=== PATIENT | female | born 1945 | race Hispanic/Latino ===

== ENCOUNTER → 2024-05-05 | Outpatient (CLI) | payer OTHER | END | disposition home or self-care (01) | LOC: RAH 10:03 | PROVIDERS: ATTEND Internal Medicine | DX: N28.1 Cyst of kidney, acquired (principal); K76.0 Fatty (change of) liver, not elsewhere classified; R79.89 Other specified abnormal findings of blood chemistry | CPT/HCPCS: 76700 ==

== ENCOUNTER 2024-12-24 11:51 | Emergency (ER) | payer OTHER ==
[~2024-12-24] VITALS: Ht 154.9 cm; Wt 90.3 kg
[2024-12-24 12:01] VITALS: O2SAT 96
--- NOTE | 2024-12-24 12:46 | EKG ---
[facility] Test Date: 2024-12-24 Test Time: 12:43:29 Pat Name: CHNAEL GONZALEZ Department: [facility] Room: Gender: F Lusterer: [id number] : 1945 Requested By: ABENA FERNANDEZ Order Number: [id number] Reading MD: Michel Britton Measurements Intervals Serena Rate: 65 P: 6 [place]: 174 QRS: -27 QRSD: 87 T: 25 QT: 434 QTc: 451 Interpretive Statements Sinus rhythm Poor R wave progression No previous ECG available for comparison Electronically Signed On 12-25-2024 16:18:05 CDT by Michel Britton Please click the below link to view image of tracing.
[2024-12-24 12:47] LABS: BASOPHILS # (AUTO) 0.03 K/uL (0.00-0.20); BASOPHILS % (AUTO) 0.3 % (0.0-5.0); EOSINOPHILS # (AUTO) 0.09 K/uL (0.00-0.70); EOSINOPHILS % (AUTO) 0.9 % (0.0-8.0); HEMATOCRIT 41.8 % (36-48); IMMATURE GRANULOCYTE ABSOLUTE 0.03 K/uL (0-1); LYMPHOCYTES # (AUTO) 2.8 K/uL (1.0-4.8); MEAN CORPUSCULAR HEMOGLOBIN 29.9 pg (27.0-33.0); MEAN CORPUSCULAR HGB CONC 32.8 g/dL (32.0-36.0); MEAN CORPUSCULAR VOLUME 91.3 fL (79-99); MONOCYTES # (AUTO) 0.7 K/uL (0.1-1.0); MONOCYTES % (AUTO) 7.2 % (3.0-13.0); NEUTROPHILS # (AUTO) 6.6 K/uL (1.8-7.7); NEUTROPHILS % (AUTO) 64.3 % (40.0-77.0); PLATELET COUNT (AUTO) 447 K/uL (130-400); RED BLOOD CELL COUNT(AUTO) 4.58 MIL/uL (4.00-5.50); RED CELL DISTRIBUTION WIDTH 13.3 % (11.0-15.5); WHITE BLOOD COUNT (AUTO) 10.2 K/uL (4.8-10.8)
[2024-12-24 12:58] LABS: CREATININE 0.5 mg/dL (0.5-1.0); POTASSIUM 3.9 mmol/L (3.5-5.1)
[2024-12-24 13:01] LABS: ALBUMIN 3.7 g/dL (3.5-5.0); BILIRUBIN,TOTAL 0.3 mg/dL (0.2-1.0); TOTAL PROTEIN, SERUM 8.5 g/dL (6.0-8.3)
[2024-12-24] MEDS ORDERED: IOHEXOL 350 MG/ML 100ML INFUS..BTL IV ONE (13:33)
--- NOTE | 2024-12-24 13:45 | ERN ---
General Chief Complaint: Mechanical Fall Stated Complaint: MECHANICAL FALL Time Seen by MD: 12:05 Source: patient History of Present Illness Initial Comments Patient is a 79-year-old female coming in complaining of abdominal discomfort. Patient states that earlier today she slipped and fell down hitting herself in the abdomen. She is complaining of abdominal pain. Along with the abdominal pain she states that she is a has been having some upper back pain. Allergies: Coded Allergies: No Known Drug Allergies (Unverified Allergy, Unknown, 12/24/24) Past Medical History Past Medical History: Diabetes-Type II, High Cholesterol, Hypertension Past Surgical History: Hysterectomy, Other Surgical History Other: bilateral knee sx, cataracts ROS Dictation CONSTITUTIONAL: No chills, no fever, no weakness, no diaphoresis, no malaise. HEAD/FACE: No signs of trauma. EENT: No eye pain, no blurred vision, no tearing, no double vision, no ear pain, no ear discharge, no nose pain, no nasal congestion, no throat pain, no throat swelling, no mouth pain. RESPIRATORY: No cough, no orthopnea, no SOB, no stridor, no wheezing. CARDIOVASCULAR: No chest pain, no edema, no palpitations, no syncope. GASTROINTESTINAL/ABDOMINAL: abdominal pain, no constipation, no diarrhea, no nausea, no vomiting. GENITOURINARY: No abnormal discharge, no dysuria, no frequent urination, no hematuria. No complaints of pain in the genitals. MUSCULOSKELETAL: No back pain, no gout, no joint pain, no joint swelling, no muscle pain, no muscle stiffness, no neck pain. INTEGUMENTARY: No change in color, no change in hair/nails, no dryness, no lesion, no lumps, no rash. NEUROLOGICAL/PSYCH: No anxiety, not depressed, no emotional problem, no headache, no numbness, no pre-existing deficit, no history of seizures, no tremors, no weakness. HEMATOLOGIC/LYMPHATIC: Not anemic, no history of blood clots, no apparent bleeding, no bruising, glands not swollen. All Systems Negative, Except as Noted. Physical Exam Physical Exam Dictation VITAL SIGNS: Reviewed. GENERAL APPEARANCE: Alert, oriented x3, no acute distress, obese. HEAD AND FACE: Non-traumatic. EYES: PERRL, pink conjunctivas, eyelid no trauma, anterior chamber clear. EARS: Pinnas intact and no signs of trauma or erythema. Ear canals clear and no discharge. TMs no erythema. NOSE: No discharge, no bleeding. OROPHARYNX: Mouth normal, teeth no caries, tongue pink. Pharynx clear, no erythema. Tonsils no exudates, no abscesses noted. Mucous membrane moist. NECK: Supple, non-tender, no thyromegaly, no masses, no JVD, no bruits. BREAST: Deferred. CHEST: No tenderness, no crepitus, no paradoxical movement, no retractions. LUNGS: Clear, well-ventilated, symmetric, no rales, no wheezing, no rhonchi, no stridor, good breath sounds bilaterally. HEART: Regular rate, regular rhythm, no murmur, no gallops. VASCULAR: No peripheral edema. ABDOMEN: Soft, positive bowel sounds, nondistended, no guarding, tender, no rebound, no masses no hepatomegaly, no splenomegaly, no Olivier's sign, no hernias. RECTAL: Deferred. GENITAL: Deferred. NEUROLOGICAL: Normal speech, gross motor function intact, gross sensory function intact. MUSCULOSKELETAL: Neck nontender, full range of motion, back nontender, full range of motion. EXTREMITIES: Nontender, full range of motion. SKIN: Color pink, dry, no turgor, no rash, no lacerations, no abrasions, no contusions. LYMPHATICS: Deferred. Results Laboratory and Microbiology Lab and Micro Result Laboratory Tests Test 12/24/24 12:41 White Blood Count 10.2 K/uL (4.8-10.8) Red Blood Count 4.58 MIL/uL (4.00-5.50) Hemoglobin 13.7 g/dL (12.0-16.0) Hematocrit 41.8 % (36-48) Mean Corpuscular Volume 91.3 fL (79-99) Mean Corpuscular Hemoglobin 29.9 pg (27.0-33.0) Mean Corpuscular Hemoglobin Concent 32.8 g/dL (32.0-36.0) Red Cell Distribution Width 13.3 % (11.0-15.5) Platelet Count 447 K/uL (130-400) H Mean Platelet Volume 10.1 fL (7.5-10.5) Immature Granulocyte % (Auto) 0.3 % (0-1) Neutrophils (%) (Auto) 64.3 % (40.0-77.0) Lymphocytes (%) (Auto) 27.0 % (21.0-51.0) Monocytes (%) (Auto) 7.2 % (3.0-13.0) Eosinophils (%) (Auto) 0.9 % (0.0-8.0) Basophils (%) (Auto) 0.3 % (0.0-5.0) Neutrophils # (Auto) 6.6 K/uL (1.8-7.7) Lymphocytes # (Auto) 2.8 K/uL (1.0-4.8) Monocytes # (Auto) 0.7 K/uL (0.1-1.0) Eosinophils # (Auto) 0.09 K/uL (0.00-0.70) Basophils # (Auto) 0.03 K/uL (0.00-0.20) Absolute Immature Granulocyte (auto 0.03 K/uL (0-1) Nucleated Red Blood Cells 0.0 % (0.0-0.19) Sodium Level 138 mmol/L (136-145) Potassium Level 3.9 mmol/L (3.5-5.1) Chloride Level 101 mmol/L (101-111) Carbon Dioxide Level 33 mmol/L (21-32) H Blood Urea Nitrogen 11 mg/dL (7-18) Creatinine 0.5 mg/dL (0.5-1.0) Glomerular Filtration Rate Calc 97 mL/min (>90) Random Glucose 126 mg/dL (70-105) H Total Calcium 9.8 mg/dL (8.5-10.1) Total Bilirubin 0.3 mg/dL (0.2-1.0) Aspartate Amino Transf (AST/SGOT) 55 U/L (10-37) H Alanine Aminotransferase (ALT/SGPT) 63 U/L (12-78) Alkaline Phosphatase 77 U/L (50-136) Troponin I High Sensitivity 7 ng/L (4-50) Total Protein 8.5 g/dL (6.0-8.3) H Albumin 3.7 g/dL (3.5-5.0) Lipase 40 U/L (16-77) Labs Reviewed?: Yes EKG/XRAY/US/CT/MRI EKG Comment 12/24/2024 time 12:43 p.m. Ventricular rate [address] wave elevation or depression CT Scan Comment [facility] [address] [place] [address] IMAGING REPORT Signed PATIENT: CHANEL GONZALEZ MR#: [id number] : 1945 SEX: F AGE: 79 LOCATION: [facility] ORDER 1308 STATUS: REG ER REPORT#: [id number] SERVICE 1307 REASON: fall ORDERING PHYSICIAN: ABENA FERNANDEZ MD PROCEDURE: ABD PEL W - CT ABDOMEN/PELVIS W/CONTRAST CT ABDOMEN/PELVIS W/CONTRAST HISTORY: fall TECHNIQUE: CT ABDOMEN/PELVIS W/CONTRAST Omnipaque contrast was used. Oral contrast was not given. Coronal and sagittal reformats were obtained. CT was performed with one or more of the following dose reduction techniques: Automated exposure control, adjustment of the mA and/or kV according to the patient's size, or use of the iterative reconstruction technique. Comparison: None. FINDINGS: Mild atelectatic changes are seen in the lung bases. There is mild cardiomegaly. There is hepatic steatosis. No calcified gallstone is seen. Small right renal cyst is noted. Small cyst also seen in the lower pole of the left kidney. The spleen, pancreas, and adrenal glands are within normal limits. No hydronephrosis. The urinary bladder is partially distended. Hysterectomy changes are noted. No bowel obstruction identified. Appendix is normal in caliber. Atherosclerotic changes of the aorta with calcified plaques. Degenerative changes of the spine are seen. No displaced fracture is identified. Correlate clinically. IMPRESSION: No acute CT findings. Additional findings as described above. DICTATED BY: BINH SEALS MD DATE: 12/24/241420 ELECTRONICALLY SIGNED BY: BINH SEALS MD DATE: 12/24/241425 [facility] MDM: Differential diagnosis: Fall, abdominal contusion, Rationale: Tests considered and ordered secondary to shared decision making include: Previous outside records reviewed: Old ER visits. Risk of complication and/or morbidity or mortality of patient management: None Medications-Per medication reconciliation Need for hospitalization: Patient does not meet criteria for hospitalization. Need for emergency major/minor surgery: No There are no social concerns with this patient. Prescription drug management Prescriptions will include symptomatic care Patient's prior external medical records from other ER visits were reviewed by me as indicated. Prior testing and results from previous visits were reviewed. Prior tests were taken into account with medical decision making and resource utilization, independent historian/historians were used to obtain complete medical history. I independently interpreted the test that were performed, results were reviewed by me and considered findings on radiology if ordered. Medical management and examination interpretation discussions were had by me with other qualified healthcare professionals as indicated for the patient's care. Patient is a 79-year-old female coming in to be evaluated after she had a fall. Per patient she was complaining of abdominal pain in a fall. Imaging studies within normal limits. Patient will be discharged in stable condition with a fall. ED Course Orders Procedure Category Date Status Time Cbc With Differential LAB 12/24/24 Complete 12:38 Comprehensive LAB 12/24/24 Complete Metabolic Panel 12:38 Lipase LAB 12/24/24 Complete 12:38 12 Lead Ekg Tracing- EKG 12/24/24 Complete Technical 12:38 Troponin I High LAB 12/24/24 Complete Sensitivity 12:38 Ct Abdomen/Pelvis CT 12/24/24 Resulted W/Contrast 13:07 Orphenadrine Citrate PHA 12/24/24 Complete (Norflex) 13:30 Iohexol (Omnipaque) PHA 12/24/24 Complete 13:33 Current Medications Medications (Trade) Dose Ordered Sig/Vickey Route PRN Reason Start Time Stop Time Status Last Admin Dose Admin Iohexol (Omnipaque) 35,000 mg STK-MED ONCE IV 12/24/24 13:33 12/24/24 13:33 DC Orphenadrine Citrate (Norflex) 60 mg ONCE ONCE IM 12/24/24 13:30 12/24/24 13:31 DC Vital Signs Date Time Temp Pulse Resp B/P (MAP) Pulse Ox O2 Delivery O2 Flow Rate FiO2 12/24/24 12:01 97.9 68 16 131/65 96 Room Air* 0 21 12/24/24 11:56 97.9 68 16 131/65 Room Air 0 DX & DISP Disposition: Discharge Departure Impression: Primary Impression: Fall Additional Impression: Abdominal wall contusion Condition: Stable Scripts Acetaminophen (Tylenol) 500 Mg Tab 1 TAB PO Q6HPRN PRN for pain or fever for 5 Days, #30 TAB 0 Refills Prov: ABENA FERNANDEZ MD 12/24/24 Additional Instructions: FOLLOW-UP WITH PRIMARY CARE PROVIDER IN 1 TO 2 DAYS. TAKE MEDICATIONS DIRECTED HERE IN THE EMERGENCY ROOM. OKAY TO CONTINUE HOME MEDICATIONS UNLESS OTHERWISE DISCUSSED DURING YOUR VISIT IN THE EMERGENCY ROOM TODAY. RETURN TO YOUR NEAREST EMERGENCY ROOM IF SYMPTOMS WORSEN OR IF THERE IS NO IMPROVEMENT. CALL 911 IF YOU NEED IMMEDIATE ASSISTANCE. TAKE TYLENOL [id number] NEEDED AND IF NO CONTRAINDICATIONS ARE PRESENT. INCREASE ORAL HYDRATION. A WOUND CULTURE OR URINE CULTURE WAS ORDERED HERE IN THE EMERGENCY ROOM DEPARTMENT PLEASE FOLLOW-UP WITH PRIMARY CARE PROVIDER AND ADVISE THEM TO GET REPORTS FROM OUR FACILITY. IF YOU HAD ANY IRIS WRAP/SPLINTS THAT WERE APPLIED HERE, PLEASE DO NOT REMOVE THEM UNTIL YOU SEE YOUR PRIMARY CARE OR SPECIALTY. Referrals: Referrals: ASHLEY MENDOZA MD (PCP) Time of Disposition: 14:31 ABENA FERNANDEZ MD Dec 24, 2024 13:45
--- NOTE | 2024-12-24 14:26 | HMCIMG ---
CT ABDOMEN/PELVIS W/CONTRAST HISTORY: fall TECHNIQUE: CT ABDOMEN/PELVIS W/CONTRAST Omnipaque contrast was used. Oral contrast was not given. Coronal and sagittal reformats were obtained. CT was performed with one or more of the following dose reduction techniques: Automated exposure control, adjustment of the mA and/or kV according to the patient's size, or use of the iterative reconstruction technique. Comparison: None. FINDINGS: Mild atelectatic changes are seen in the lung bases. There is mild cardiomegaly. There is hepatic steatosis. No calcified gallstone is seen. Small right renal cyst is noted. Small cyst also seen in the lower pole of the left kidney. The spleen, pancreas, and adrenal glands are within normal limits. No hydronephrosis. The urinary bladder is partially distended. Hysterectomy changes are noted. No bowel obstruction identified. Appendix is normal in caliber. Atherosclerotic changes of the aorta with calcified plaques. Degenerative changes of the spine are seen. No displaced fracture is identified. Correlate clinically. IMPRESSION: No acute CT findings. Additional findings as described above.
[2024-12-24] MEDS ORDERED: ACET-66 PO (14:32)
[2024-12-24] MEDS: ORPHENADRINE 60MG/2ML IM ONE (14:38)
[2024-12-24 14:40] VITALS: BP 133/58; PULSE 67; RESP 16; TEMP 97.9
--- NOTE | 2024-12-24 14:42 | NUR ---
PT STABLE NO DISTRESS, VITALS WNL STATES SHE FEELS SORE BUT PAIN IS LESS NOW, BETTER THAN WHEN SHE CAME IN. PT GIVEN INSTRUCTION FOR HOME VERBALIZED UNDERSTANDING. IV REMOVED CATHETER INTACT. PT TAKEN IN W/C, PT DRIVEN HOME BY DAUGHTER.
== END 2024-12-24 14:57 | disposition home or self-care (01) ==
LOC: EDH 11:51
DX: S30.1XXA Contusion of abdominal wall, initial encounter (principal); E11.9 Type 2 diabetes mellitus without complications; E78.00 Pure hypercholesterolemia, unspecified; I10 Essential (primary) hypertension; Z90.710 Acquired absence of both cervix and uterus; W01.0XXA Fall on same level from slipping, tripping and stumbling without subsequent striking against object, initial encounter; Y93.89 Activity, other specified; Y92.89 Other specified places as the place of occurrence of the external cause; Y99.8 Other external cause status
CPT/HCPCS: 99285; 74177; 84484; 80053; 83690; 85025; 36415; 96372; 93005; Q9967; J2360